=== PATIENT | female | born 1950 | race Caucasian/White ===

== ENCOUNTER 2017-02-07 09:54 | Outpatient (CLI) | payer OTHER ==
--- NOTE | 2017-02-07 14:44 | Diagnostic Imaging Report ---
LOS PARDO [facility] [address] [address] [facility] [address] [id number] Report Submission Date: Feb 07, 2017 1:39:33 PM CDT Patient Study Name: SHARYN KLEIN Date: Feb 07, 2017 10:06:04 AM CDT Modality Type: CR Gender: F Description: LOWER EXTREMITY : 50 Institution: [facility] Physician: LOS PARDO Left foot -three views CLINICAL HISTORY: Fall with injury. Pain in the 1st toe. FINDINGS: Examination of the left foot in plantar, lateral and oblique views demonstrates mild degenerative changes with slight narrowing of the 1st metatarsophalangeal joint. There is no evident fracture or dislocation and no evident lytic or blastic lesion. IMPRESSION: Mild degenerative changes. No fracture. Electronically signed on Feb 07, 2017 1:39:33 PM CDT by: Srinivasa MURILLO
== END 2017-02-07 10:04 ==
LOC: RAD 09:54
PROVIDERS: ATTEND Family Medicine
DX: M79.674 Pain in right toe(s) (principal)
CPT/HCPCS: 73630